=== PATIENT | male | born 1955 | race Caucasian/White ===

== ENCOUNTER 2016-07-19 19:03 | Emergency (ER) | payer SELFPAY ==
[~2016-07-19] VITALS: Ht 175.3 cm; Wt 65.8 kg
[2016-07-20 03:30] VITALS: BP 128/81
[2016-07-20] MEDS ORDERED: TETRACAINE HCL 0.5% OPTH(EYE) SOLN 4ML LEFTEYE ONE (04:00)
[2016-07-20] MEDS ORDERED: FLUORESCEIN SOD 1 MG TEST STRIP LEFTEYE ONE (04:00)
== END 2016-07-20 05:10 | disposition home or self-care (01) ==
LOC: ER 19:03
DX: H57.8 Other specified disorders of eye and adnexa (principal); F12.10 Cannabis abuse, uncomplicated; Z87.891 Personal history of nicotine dependence
CPT/HCPCS: 94761

== ENCOUNTER 2018-08-12 13:59 | Emergency (ER) | payer MEDICAID, OTHER ==
[~2018-08-12] VITALS: Ht 175.3 cm; Wt 68.0 kg
[2018-08-12] MEDS ORDERED: LET TOPICAL SOLN 5 ML TOP ONE (15:00)
[2018-08-12] MEDS ORDERED: MORPHINE SULFATE 4 MG/ML SYR/VIAL IV ONE (15:00)
[2018-08-12] MEDS ORDERED: PROMETHAZINE HCL 25 MG/ML 1ML IV ONE (15:00)
[2018-08-12] MEDS: BACITRACIN TOP OINT 1 UD PKG TOP ONE ×2 (15:00→16:54)
[2018-08-12] MEDS ORDERED: LIDOCAINE 1% (LOCAL ANESTH.) PF 5ml SDV ID ONE (15:00)
[2018-08-12] MEDS ORDERED: TETANUS-DIPTH-ACEL PERTUSSIS 0.5ML SYRG IM ONE (15:15)
[2018-08-12] MEDS ORDERED: cefTRIAXone 1GM/50ML D5W 50 ML IV ONE (15:15)
[2018-08-12] MEDS ORDERED: LIDOCAINE 1% HCL (LOCAL ANESTH.) INJ 20ML MDV ONE (15:22)
[2018-08-12] MEDS ORDERED: SODIUM CHLORIDE 0.9% 1,000 ML IV ONE (16:30)
[2018-08-12 16:49] VITALS: BP 142/79
== END 2018-08-12 17:10 | disposition short-term general hospital (02) ==
LOC: EDBD 13:59 → ER 14:08
DX: S93.125A Dislocation of metatarsophalangeal joint of left lesser toe(s), initial encounter (principal); S91.332A Puncture wound without foreign body, left foot, initial encounter; S51.832A Puncture wound without foreign body of left forearm, initial encounter; S01.431A Puncture wound without foreign body of right cheek and temporomandibular area, initial encounter; S61.431A Puncture wound without foreign body of right hand, initial encounter; W54.0XXA Bitten by dog, initial encounter; Y93.89 Activity, other specified; Y99.8 Other external cause status; Y92.89 Other specified places as the place of occurrence of the external cause
CPT/HCPCS: 12001; 28630; 70486; 73090; 73130; 73620; 73630; 90471; 90715; 96365; 96375; 99285; J0696; J2001; J2270; J2550; J7030

== ENCOUNTER 2022-03-10 19:05 | Emergency (ER) | payer SELFPAY ==
[~2022-03-10] VITALS: Ht 175.3 cm; Wt 65.9 kg
[2022-03-10] MEDS ORDERED: TETANUS-DIPTH-ACEL PERTUSSIS 0.5ML SYR Tdap IM ONE (20:30)
[2022-03-10] MEDS ORDERED: AMOX-277 PO (20:31)
[2022-03-10 21:10] VITALS: BP 143/74
== END 2022-03-10 21:45 | disposition home or self-care (01) ==
LOC: ER 19:05
DX: S51.831A Puncture wound without foreign body of right forearm, initial encounter (principal); S51.851A Open bite of right forearm, initial encounter; Z79.2 Long term (current) use of antibiotics; W54.0XXA Bitten by dog, initial encounter; Y93.89 Activity, other specified; Y92.89 Other specified places as the place of occurrence of the external cause; Y99.8 Other external cause status
CPT/HCPCS: 90471; 90715